=== PATIENT | male | born 1975 | race American Indian/Alaskan Native ===

== ENCOUNTER 2021-05-11 12:52 | Emergency (ER) | payer SELFPAY ==
[2021-05-11 13:57] VITALS: BP 169/114
--- NOTE | 2021-05-11 15:35 | Emergency Department Report ---
ED ENT HPI - General Chief complaint: Dental/Oral Stated complaint: TOOTH PAIN Time Seen by Provider: 05/11/21 15:25 Source: patient Mode of arrival: Ambulatory Limitations: No Limitations - History of Present Illness Initial comments: Patient is a 46-year-old male presents emergency room complaints of right lower dental pain that began this morning. He states he has noticed some swelling in that region. He states he has not seen a dentist in 5 years. He denies any fever, nausea, vomiting, diarrhea, difficulty breathing, difficulty swallowing, facial swelling. No past medical history. No allergies to medications. - Related Data Previous Rx's Medication Instructions Recorded Last Taken Type Chlorhexidine Mouthwash [Peridex] 15 ml MM BID #1 bottle 05/11/21 Unknown Rx Naproxen 375 mg PO BID PRN #20 tablet 05/11/21 Unknown Rx Penicillin Vk [Veetids TAB] 500 mg PO QID 7 Days #56 tablet 05/11/21 Unknown Rx Allergies Allergy/AdvReac Type Severity Reaction Status Date / Time No Known Allergies Allergy Unverified 05/11/21 13:55 ED Dental HPI - General Chief complaint: Dental/Oral Stated complaint: TOOTH PAIN Time Seen by Provider: 05/11/21 15:25 Source: patient Mode of arrival: Ambulatory Limitations: No Limitations - Related Data Previous Rx's Medication Instructions Recorded Last Taken Type Chlorhexidine Mouthwash [Peridex] 15 ml MM BID #1 bottle 05/11/21 Unknown Rx Naproxen 375 mg PO BID PRN #20 tablet 05/11/21 Unknown Rx Penicillin Vk [Veetids TAB] 500 mg PO QID 7 Days #56 tablet 05/11/21 Unknown Rx Allergies Allergy/AdvReac Type Severity Reaction Status Date / Time No Known Allergies Allergy Unverified 05/11/21 13:55 ED Review of Systems ROS: Stated complaint: TOOTH PAIN Other details as noted in HPI Comment: All other systems reviewed and negative ED Past Medical Hx - Past Medical History Previous Medical History?: No - Surgical History Additional Surgical History: LEFT KNEE - Medications Home Medications: Home Medications Medication Instructions Recorded Confirmed Last Taken Type Chlorhexidine Mouthwash [Peridex] 15 ml MM BID #1 bottle 05/11/21 Unknown Rx Naproxen 375 mg PO BID PRN #20 tablet 05/11/21 Unknown Rx Penicillin Vk [Veetids TAB] 500 mg PO QID 7 Days #56 tablet 05/11/21 Unknown Rx ED Physical Exam - General Limitations: No Limitations General appearance: alert, in no apparent distress - Head Head exam: Present: atraumatic, normocephalic - Eye Eye exam: Present: normal appearance - ENT ENT exam: Present: mucous membranes moist, other (very poor dentition, several missing/cracked teeth and dental caries, there is a dental carry present to the right lower molar with adjacent gumline edema, uvula is midline, no uvular edema or deviation, no trismus, no tongue elevation, no muffled voice, no submandibular edema) - Respiratory Respiratory exam: Absent: respiratory distress, accessory muscle use - Neurological Exam Neurological exam: Present: alert, oriented X3 - Psychiatric Psychiatric exam: Present: normal affect, normal mood - Skin Skin exam: Present: warm, dry, intact ED Course Vital Signs 05/11/21 13:55 Temperature 98.8 F Pulse Rate 83 Respiratory 20 Rate Blood Pressure 169/114 O2 Sat by Pulse 96 Oximetry ED Medical Decision Making - Medical Decision Making Patient is a 46-year-old male presents emergency room complaints of right lower dental pain that began this morning. He states he has noticed some swelling in that region. He states he has not seen a dentist in 5 years. He denies any fever, nausea, vomiting, diarrhea, difficulty breathing, difficulty swallowing, facial swelling. No past medical history. No allergies to medications. Vitals with elevated blood pressure, otherwise stable, patient is not having any complaints regarding elevated blood pressure, the up-to-date medical literature does not recommend emergently lowering asymptomatic elevated blood pressure, discussed the importance of outpatient follow-up and discussed lifestyle modifications. On exam: very poor dentition, several missing/cracked teeth and dental caries, there is a dental carry present to the right lower molar with adjacent gumline edema, uvula is midline, no uvular edema or deviation, no trismus, no tongue elevation, no muffled voice, no submandibular edema. Examination appears consistent with dental abscess from infected dental caries. No clinical signs of facial abscess, facial cellulitis, Ludwigs at this time. Patient given prescription for medications. Advised patient Please use medicat ion as prescribed. Follow-up with a dentist. It is very important that you follow-up. Please follow-up with your primary care doctor regarding the elevation in your blood pressure during today's visit. Eat a low-sodium/low salt diet. Increase your water intake. Incorporate 30 to 60 minutes of daily exercise. Keep a blood pressure log and take this to the primary care doctor. Return to emergency room for any new or worsening symptoms. Critical care attestation.: If time is entered above; I have spent that time in minutes in the direct care of this critically ill patient, excluding procedure time. ED Disposition Clinical Impression: Poor dentition, Infected dental caries, Elevated blood pressure reading Disposition: HOME / SELF CARE / HOMELESS Is pt being admited?: No Does the pt Need Aspirin: No Condition: Stable Instructions: Dental Abscess Additional Instructions: Please use medication as prescribed. Follow-up with a dentist. It is very important that you follow-up. Please follow-up with your primary care doctor regarding the elevation in your blood pressure during today's visit. Eat a low- sodium/low salt diet. Increase your water intake. Incorporate 30 to 60 minutes of daily exercise. Keep a blood pressure log and take this to the primary care doctor. Return to emergency room for any new or worsening symptoms. Prescriptions: Naproxen 375 mg PO BID PRN #20 tablet PRN Reason: pain Chlorhexidine Mouthwash [Peridex] 15 ml MM BID #1 bottle Penicillin Vk [Veetids TAB] 500 mg PO QID 7 Days #56 tablet Referrals: [facility] [Outside] - 3-5 Days [facility] [Outside] - 3-5 Days NNEKA LANDRUM MD [Staff Physician] - 3-5 Days [facility] [Provider Group] - 3-5 Days [facility] [Outside] - 3-5 Days [facility] [Outside] - 3-5 Days Time of Disposition: 15:33 Print Language: [place] CITIZ[place]
== END 2021-05-11 15:52 | disposition home or self-care (01) ==
LOC: ED 12:52
DX: K08.9 Disorder of teeth and supporting structures, unspecified (principal); K02.9 Dental caries, unspecified; R03.0 Elevated blood-pressure reading, without diagnosis of hypertension; Z98.890 Other specified postprocedural states; Z79.899 Other long term (current) drug therapy
CPT/HCPCS: 99281